=== PATIENT | female | born 2000 | race Caucasian/White ===

== ENCOUNTER 2022-09-22 17:49 | Emergency (ER) | payer OTHER ==
[2022-09-22] MEDS ORDERED: HYDROcodone/Acetaminophen 5/325 mg Tablet ONE (18:27)
== END 2022-09-22 19:04 | disposition home or self-care (01) ==
LOC: CSHERS 17:49
DX: S52.592A Other fractures of lower end of left radius, initial encounter for closed fracture (principal); S52.692A Other fracture of lower end of left ulna, initial encounter for closed fracture; W23.1XXA Caught, crushed, jammed, or pinched between stationary objects, initial encounter
CPT/HCPCS: 25560